=== PATIENT | male | born 1950 | race Caucasian/White ===

== ENCOUNTER → 2020-12-28 | Outpatient (CLI) | payer MEDICARE, OTHER ==
--- NOTE | 2020-12-31 11:45 | PE ---
EXAMINATION TYPE: PET CT fusion skull to thigh DATE OF EXAM: 12/28/2020 COMPARISON: NONE HISTORY: Solitary pulmonary nodule, abnormal CT , left lung TECHNIQUE: Following the intravenous administration of 10.34 mCi of F-18 FDG, whole body images are performed from the skull base to the midthigh. Images are reviewed on the computer in the coronal, a xial, and sagittal planes. Reconstructed rotating images are created on independent workstation and reviewed on the computer. A localization and attenuation correction CT is performed in conjunction with the PET scan. Blood glucose level equals 200 SCAN: Initial Scan FINDINGS: Slightly suboptimal due to large body habitus and borderline elevated blood glucose. SKULL BASE AND NECK: No areas of abnormal hypermetabolic uptake. CHEST, MEDIASTINUM, AND HILAR REGION: Low lung volumes. Adjacent to left heart border there is a 1.2 x 0.8 cm nodule or nodular consolidation axial image 107 that is ametabolic. No areas of abnormal hypermetabolic uptake noted. . ABDOMEN AND PELVIS: No adrenal masses. Normal excretion. No areas of abnormal hypermetabolic uptake. OSSEOUS STRUCTURES: No areas of abnormal hypermetabolic uptake. OTHER CT: Moderate calcified plaque bilateral carotid bulb level with medial course. Symmetric frame shaped bilateral gynecomastia. Moderate to severe three-vessel coronary artery calcif ication. Mild cardiomegaly. Cholecystectomy clips. Liver low densities consistent with mild diffuse fatty infiltration. Cortical thinning both kidneys. Diverticula in the left and sigmoid colon. Scattered pelvic phleboliths. Moder ate left scrotal fluid collection or hydrocele. Vacuum disc phenomenon L4-L5 level. IMPRESSION: No areas of abnormal hypermetabolic uptake to suggest neoplasm. Consider short-term follo w-up CT in 6-12 months time to document stability/reassess the left lung nodule.
== END | disposition home or self-care (01) ==
LOC: RADPETMAIN 13:54
PROVIDERS: ATTEND Family Medicine
DX: R91.8 Other nonspecific abnormal finding of lung field (principal); K76.0 Fatty (change of) liver, not elsewhere classified; K57.30 Diverticulosis of large intestine without perforation or abscess without bleeding; N28.89 Other specified disorders of kidney and ureter
CPT/HCPCS: 78815; A9552